=== PATIENT | male | born 1980 | race Caucasian/White ===

== ENCOUNTER 2021-01-13 13:17 | Emergency (ER) | payer SELFPAY ==
[2021-01-13] MEDS ORDERED: Lidocaine 1% 10 ML MDV INJECT ONE (13:46)
[2021-01-13] MEDS ORDERED: HYDROmorphone 1 MG/ML Syringe IM ONE (13:50)
--- NOTE | 2021-01-13 14:01 | EDM.PDOC ---
ED HPI GENERAL MEDICAL PROBLEM - General Chief Complaint: Lower Extremity Injury/Pain Stated Complaint: LEG SWELLING Time Seen by Provider: 01/13/21 13:40 Source of Information: Reports: Patient, RN Notes Reviewed History Limitations: Reports: No Limitations - History of Present Illness INITIAL COMMENTS - FREE TEXT/NARRATIVE: Patient is a 40-year-old male who presents to the ER for the evaluation of his right leg abscess. States this is been present for about the last 4 days. He has issues with these in the past but they just can come and go and resolve themselves he states however this 1 seems to be getting bigger, more tender and not going away. Not having any fevers or chills, cough or shortness of breath or any sort of nausea/vomiting/diarrhea. Patient has not had any drainage from the area. States is very painful and has not been able to take anything that has really manage the pain. The abscess is on the posterior inside of the right mid thigh. Right groin Pain Score (Numeric/FACES): 3 - Related Data Allergies Allergy/AdvReac Type Severity Reaction Status Date / Time No Known Allergies Allergy Verified 01/13/21 13:32 Home Meds: Home Meds Doxycycline [Vibramycin] 100 mg PO BID 7 Days #14 tab 01/13/21 [Rx] oxyCODONE HCl/Acetaminophen [Oxycodone-Acetaminophen 5-325] 1 tab PO Q6H PRN #12 tablet 01/13/21 [Rx] Past Medical History - Past Health History Medical/Surgical History: Denies Medical/Surgical History - Infectious Disease History Infectious Disease History: Reports: Chicken Pox Social & Family History - Family History Family Medical History: No Pertinent Family History - Tobacco Use Tobacco Use Status *Q: Current Every Day Tobacco User Years of Tobacco use: 20 Packs/Tins Daily: 0.5 - Caffeine Use Caffeine Use: Reports: Coffee, Energy Drinks, Soda - Recreational Drug Use Recreational Drug Use: No Review of Systems - Review of Systems Review Of Systems: Comprehensive ROS is negative, except as noted in HPI. ED EXAM, GENERAL - Physical Exam Exam: See Below Exam Limited By: No Limitations General Appearance: Alert, WD/WN, No Apparent Distress Respiratory/Chest: No Respiratory Distress, Lungs Clear, Normal Breath Sounds, No Accessory Muscle Use, Chest Non-Tender Cardiovascular: Normal Peripheral Pulses, Regular Rate, Rhythm, No Edema Extremities: Normal Range of Motion, Normal Capillary Refill Neurological: Alert, Oriented, Normal Cognition, No Motor/Sensory Deficits Psychiatric: Normal Affect, Normal Mood Skin Exam: Warm, Dry, Intact, No Rash, Erythema (area of induration on Right posterior mid thigh. This is roughly grape size in nature; no drainage. Surrounding erythema/with tenderness.), Increased Warmth ED TRAUMA EXTREMITY PROCEDURES - I&D Site: Right mid thigh Skin Prep: Chlorhexidine (Hibiciens) Local Anesthesia: Lidocaine: 1% Plain Local Anesthetic Volume: Other (8cc) Area Incised With: 11 Blade Drainage: Purulent, Bloody, Large Amount Probed to Break Up Loculations: Yes Packed With: 1/2 in. Iodoform Sterile Dressing: Adhesive Dressing Complications: No Progress/Comments: the area that was drained was 4cm x 3cm Course - Vital Signs Last Recorded V/S: Last Vital Signs Temp 97.7 F 01/13/21 13:30 Pulse 93 01/13/21 13:30 Resp 20 01/13/21 13:30 BP 118/95 H 01/13/21 13:30 Pulse Ox 97 01/13/21 13:30 - Orders/Labs/Meds Meds: Medications Discontinued Medications Generic Name Dose Route Start Last Admin Trade Name Freq PRN Reason Stop Dose Admin Hydromorphone HCl 1 mg 01/13/21 13:50 01/13/21 14:36 Hydromorphone 1 Mg/Ml Syringe IM 01/13/21 13:51 Not Given ONETIME ONE Lidocaine HCl 10 ml 01/13/21 13:46 01/13/21 14:38 Lidocaine 1% 10 Ml Mdv INJECT 01/13/21 13:47 10 ml ONETIME ONE Administration - Re-Assessments/Exams Free Text/Narrative Re-Assessment/Exam: 01/13/21 14:05 Patient presents to the ER for a abscess on his right leg. This will need to be incised and drained. Patient unfortunately does not have a ride present for him and I was not aware of this initially. So I did order 1 mg IV and Dilaudid for initial pain management but he cannot receive this as he does not have a tour driver. If you should have a tour driver sure what to take him home, then we can give him some pain medication. Departure - Departure Time of Disposition: 14:53 Disposition: Home, Self-Care 01 Condition: Good Clinical Impression: Cellulitis and abscess of right leg - Discharge Information *PRESCRIPTION DRUG MONITORING PROGRAM REVIEWED*: Yes *COPY OF PRESCRIPTION DRUG MONITORING REPORT IN PATIENT IRISH: No Prescriptions: oxyCODONE HCl/Acetaminophen [Oxycodone-Acetaminophen 5-325] 1 tab PO Q6H PRN #12 tablet PRN Reason: Pain Doxycycline [Vibramycin] 100 mg PO BID 7 Days #14 tab Instructions: Skin Abscess, [id number], Cellulitis, Adult, [id number] Referrals: PCP,None [Primary Care Provider] - Forms: ED Department Discharge Additional Instructions: You were evaluated in the ER today regarding a suspected skin infection/abscess. It does appear that you have a cellulitis and abscess of your right lower leg. The abscess was drained, and there is quite a bit of purulent and bloody material that was drained from the wound. The wound was packed with gauze to allow it to drain from the inside. You will need to leave this in place for the next 72 hours. You may take this packing out on 01/16/2021. Any family member should be able to take this out for you or you can take it out yourself. If you do not think you can do this you may return to any sort of clinic or ER to have this removed. You were given an antibiotic, doxycycline 1 tablet 2 times a day please take as prescribed until the course is done or told otherwise by different provider. Please note that this antibiotic will take at least 48 hours to start working appropriately. You may try to use heat/ice packs to the area to help reduce pain/swelling. You may take 500 mg Tylenol or 600 mg ibuprofen every 6 hours as needed for further pain relief. Do not exceed 4000 mg Tylenol or 3200 mg ibuprofen in a 24-hour time span. You were given a prescription for a strong pain medication, oxycodone/acetaminophen 5/325 mg, please take 1 tab every 6 hours as needed for pain not relieved by Tylenol or ibuprofen alone. Please note this medication does contain Tylenol in it, so do not take more than 4000 mg in a 24-hour time span. These medications can be addictive, so please take as few as possible to achieve adequate pain control. These meds can also be quite constipating, recommend that you increase your oral fluid intake and take a stool softener like MiraLAX while taking these medications. Do not drive while taking this medication. Your prescription was electronically sent to [facility] pharmacy located near [facility], this pharmacy is only open from 12 to 4 PM on Sundays, you will need to go there during this timeframe to obtain this medication and take as prescribed. Please return to the ER at any time if your symptoms change or worsen. Sepsis Event Note (ED) - Focused Exam Vital Signs: Vital Signs Temp Pulse Resp BP Pulse Ox 01/13/21 13:30 97.7 F 93 20 118/95 H 97
== END 2021-01-13 15:25 | disposition home or self-care (01) ==
LOC: JD.ED 13:17
DX: L02.415 Cutaneous abscess of right lower limb (principal); L03.115 Cellulitis of right lower limb; Z72.0 Tobacco use
CPT/HCPCS: 10060; 99283-25

== ENCOUNTER 2021-09-18 06:06 | Emergency (ER) | payer SELFPAY ==
[2021-09-18] MEDS ORDERED: Doxycycline Monohydrate 100 MG Cap PO ONE (07:09)
[2021-09-18] MEDS ORDERED: Sulfamethoxazole/Trimethoprim 800-160 MG Tab PO ONE (07:10)
== END 2021-09-18 08:20 | disposition home or self-care (01) ==
LOC: JD.ED 06:06
DX: L02.31 Cutaneous abscess of buttock (principal); L73.9 Follicular disorder, unspecified
CPT/HCPCS: 99282; A9270

== ENCOUNTER 2023-08-12 09:54 | Emergency (ER) | payer SELFPAY | END 2023-08-12 12:25 | disposition home or self-care (01) | LOC: JD.ED 09:54 | DX: N50.89 Other specified disorders of the male genital organs (principal); F17.210 Nicotine dependence, cigarettes, uncomplicated; Z79.899 Other long term (current) drug therapy | CPT/HCPCS: 76870; 76870-26; 93975; 99284 ==

== ENCOUNTER 2023-08-20 14:15 | Inpatient (IN) | payer SELFPAY ==
[2023-08-20] MEDS ORDERED: Sodium Chloride 0.9% 10 ML Syringe FLUSH PRN (15:32)
[2023-08-20 16:05] LABS: BASOPHILS ABSOLUTE AUTO 0.1 K/mm3 (0.0-0.2); BASOPHILS PERCENT AUTO 0.7 % (0.0-1.0); EOSINOPHILS ABSOLUTE AUTO 0.4 K/mm3 (0.0-0.4); EOSINOPHILS PERCENT AUTO 3.7 % (0.0-6.0); HEMATOCRIT 44.2 % (42.0-52.0); HEMOGLOBIN 14.6 gm/dl (14.0-18.0); IMMATURE GRAN ABSOLUTE AUTO 0.06 K/mm3 (0.00-0.05); IMMATURE GRAN PERCENT AUTO 0.6 % (0.0-0.4); LYMPHOCYTES ABSOLUTE AUTO 3.1 K/mm3 (1.0-4.8); LYMPHOCYTES PERCENT AUTO 33.2 % (24.0-44.0); MEAN CORPUSCULAR HEMOGLOBIN 29.3 pg (28.0-32.0); MEAN CORPUSCULAR VOLUME 88.8 fl (83.0-99.0); MEAN PLATELET VOLUME 9.8 fl (9.4-12.4); MONOCYTES ABSOLUTE AUTO 0.8 K/mm3 (0.0-0.8); MONOCYTES PERCENT AUTO 8.6 % (0.0-8.0); NEUTROPHILS PERCENT AUTO 53.2 % (41.0-71.0); PLATELET COUNT,PLT 275 K/mm3 (150-400); RED BLOOD CELL COUNT 4.98 M/mm3 (4.52-5.90); WHITE BLOOD CELL COUNT,WBC 9.42 K/mm3 (3.9-11.3)
[2023-08-20 16:35] LABS: A/G RATIO 0.9 (1-2); ALBUMIN 3.5 g/dl (3.4-5.0); ANION GAP 11.8 (5-15); BILIRUBIN TOTAL 0.4 mg/dL (0.2-1.0); BUN/CREATININE RATIO 7.3 (14-18); C-REACTIVE PROTEIN 1.1 mg/dL (<0.30); CALCIUM 9.1 mg/dL (8.5-10.1); CREATININE 1.5 mg/dL (0.7-1.3); EST CRCL DRUG DOSING (CG) 72.5 mL/min; POTASSIUM,K 3.8 mEq/L (3.5-5.1); PROTEIN TOTAL,TP 7.4 g/dl (6.4-8.2)
[2023-08-20 16:37] LABS: LACTIC ACID 0.9 mmol/L (0.4-2.0)
[2023-08-20] MEDS ORDERED: Morphine 2 MG/ML SYRINGE IVPUSH PRN (16:59)
[2023-08-20] MEDS ORDERED: Acetaminophen 325 MG Tab PO PRN (16:59)
[2023-08-20] MEDS ORDERED: Ondansetron 4 MG Tab.DIS PO PRN (16:59)
[2023-08-20] MEDS ORDERED: Melatonin 3 MG Tab PO PRN (16:59)
[2023-08-20] MEDS ORDERED: Ketorolac 30 MG/ML SDV IM PRN (16:59)
[2023-08-20 19:00] LABS: PROTHROMBIN TIME 10.6 SECONDS (9.7-12.0)
[2023-08-20] MEDS: Sodium Chloride 0.9% 1,000 ML IV SCH (19:00)
[2023-08-20 19:01] LABS: PTT,PARTIAL THROMBOPLSTIN TIME 28.8 SECONDS (21.7-31.4)
[2023-08-20] MEDS: Enoxaparin 40 MG/0.4 ML Syringe SUBCUT SCH (20:22)
[2023-08-20] MEDS: Clindamycin Phosphate in D5W 300 MG in Premix Bag 1 BAG IV SCH (20:33)
[2023-08-20] MEDS: VANCOmycin 2 GM/400 ML 2 GM in Premix Bag 1 BAG IV ONE (20:55)
[2023-08-20] MEDS: Cefepime 2 GM in Sodium Chloride 0.9% 50 ML IV SCH (21:17)
[2023-08-21] MEDS: VANCOmycin 1.25 GM/250 ML 250 ML IV SCH (04:19)
[2023-08-21 05:35] LABS: BASOPHILS ABSOLUTE AUTO 0.1 K/mm3 (0.0-0.2); BASOPHILS PERCENT AUTO 0.8 % (0.0-1.0); EOSINOPHILS ABSOLUTE AUTO 0.3 K/mm3 (0.0-0.4); EOSINOPHILS PERCENT AUTO 3.9 % (0.0-6.0); HEMATOCRIT 42.3 % (42.0-52.0); HEMOGLOBIN 13.9 gm/dl (14.0-18.0); IMMATURE GRAN ABSOLUTE AUTO 0.06 K/mm3 (0.00-0.05); IMMATURE GRAN PERCENT AUTO 0.8 % (0.0-0.4); LYMPHOCYTES ABSOLUTE AUTO 2.6 K/mm3 (1.0-4.8); LYMPHOCYTES PERCENT AUTO 33.9 % (24.0-44.0); MEAN CORPUSCULAR HEMOGLOBIN 29.6 pg (28.0-32.0); MEAN CORPUSCULAR HGB CONC 32.9 g/dl (32.0-36.0); MEAN CORPUSCULAR VOLUME 90.2 fl (83.0-99.0); MEAN PLATELET VOLUME 10.1 fl (9.4-12.4); MONOCYTES ABSOLUTE AUTO 0.8 K/mm3 (0.0-0.8); MONOCYTES PERCENT AUTO 9.8 % (0.0-8.0); NEUTROPHILS ABSOLUTE AUTO 3.9 K/mm3 (1.8-7.7); NEUTROPHILS PERCENT AUTO 50.8 % (41.0-71.0); PLATELET COUNT,PLT 251 K/mm3 (150-400); RED BLOOD CELL COUNT 4.69 M/mm3 (4.52-5.90); WHITE BLOOD CELL COUNT,WBC 7.65 K/mm3 (3.9-11.3)
[2023-08-21 06:10] LABS: ANION GAP 12.9 (5-15); BUN/CREATININE RATIO 9.2 (14-18); C-REACTIVE PROTEIN 1.08 mg/dL (<0.30); CREATININE 1.3 mg/dL (0.7-1.3); EST CRCL DRUG DOSING (CG) 83.66 mL/min; POTASSIUM,K 3.9 mEq/L (3.5-5.1)
[2023-08-21 07:22] LABS: CALCIUM 8.3 mg/dL (8.5-10.1)
[2023-08-21] MEDS ORDERED: Succinylcholine 200 MG/10 ML MDV ONE ×2 (09:55→09:58)
[2023-08-21] MEDS ORDERED: Rocuronium 50 MG/5 ML Vial ONE (09:55)
[2023-08-21] MEDS ORDERED: Propofol 200 MG/20 ML SDV ONE ×2 (09:55)
[2023-08-21] MEDS ORDERED: fentaNYL 100 MCG/2 ML SDV ONE (09:56)
[2023-08-21] MEDS ORDERED: Lidocaine 2% 5 ML SDV ONE (09:56)
[2023-08-21] MEDS ORDERED: Midazolam 1 MG/ML 2 ML SDV ONE (09:56)
[2023-08-21] MEDS ORDERED: Lactated Ringers 1,000 ML ONE (10:33)
[2023-08-21] MEDS ORDERED: dexmedeTOMIDine HCl 200 MCG/2 ML SDV ONE (10:38)
[2023-08-21] MEDS ORDERED: Bupivacaine 0.5% 30 ML SDV ONE (10:45)
[2023-08-21] MEDS ORDERED: Ondansetron 4 MG/2 ML SDV ONE (11:00)
[2023-08-21] MEDS: Ropivacaine 0.5% 5 MG/ML 30 ML SDV ONE (11:03)
[2023-08-21] MEDS ORDERED: fentaNYL 100 MCG/2 ML SDV IVPUSH PRN (11:25)
[2023-08-21] MEDS ORDERED: Ondansetron 4 MG/2 ML SDV IVPUSH PRN (11:25)
== END 2023-08-21 16:41 | disposition home or self-care (01) | DRG 717 ==
LOC: JD.ED 14:15 → JD.MS 16:59
PROVIDERS: ADMIT Family Medicine; ATTEND Family Medicine
PROC: 0V950ZZ Drainage of Scrotum, Open Approach (ICD-10-PCS; principal; 2023-08-21 10:30)
DX: N49.2 Inflammatory disorders of scrotum (principal); N17.9 Acute kidney failure, unspecified; L73.2 Hidradenitis suppurativa; F17.210 Nicotine dependence, cigarettes, uncomplicated; Z79.2 Long term (current) use of antibiotics
CPT/HCPCS: 36415; 80048; 80053; 80202; 83605; 85025; 85610; 85730; 86140; 87070; 87205; 93005; 99284; J0330; J0665; J0736; J1650; J2250; J2405; J2704; J2795; J3010; J3372; J3490; J7030; J7120